=== PATIENT | male | born 1970 | race Caucasian/White ===

== ENCOUNTER 2019-07-18 23:02 | Emergency (ER) | payer OTHER ==
--- NOTE | 2019-07-18 23:32 | ED Physician Documentation ---
PD HPI ABD PAIN - Stated complaint Stated Complaint: LT ABD PX - Chief complaint Chief Complaint: Abd Pain - History obtained from History obtained from: Patient - History of Present Illness Timing - onset: How many hours ago (few), Today Timing - duration: Hours (few) Timing - details: Abrupt onset, Still present (though has decreased a lot since arrival to the ER.) Quality: Cramping, Aching, Pain Location: LLQ Radiation: Left flank Improved by: No: Eating, Laying still, Position Worsened by: No: Eating, Moving, Palpation Associated symptoms: Nausea. No: Fever, Vomiting, Diarrhea, Constipation, Dysuria, Hematuria, Chest pain, Near syncope / syncope, Loss of appetite Similar symptoms before: Has not had sx before Recently seen: Not recently seen Review of Systems Constitutional: denies: Fever, Chills, Myalgias Nose: denies: Rhinorrhea / runny nose, Congestion Throat: denies: Sore throat Cardiac: denies: Chest pain / pressure Respiratory: denies: Cough GI: reports: Abdominal Pain, Nausea. denies: Abdominal Swelling, Vomiting, Constipation, Diarrhea : denies: Dysuria, Frequency, Hematuria Skin: denies: Rash Neurologic: denies: Generalized weakness, Near syncope PD PAST MEDICAL HISTORY - Past Medical History Past Medical History: Yes Cardiovascular: None Respiratory: None Neuro: None Endocrine/Autoimmune: None GI: None : None HEENT: None Psych: None Musculoskeletal: None Derm: None - Past Surgical History Past Surgical History: No - Present Medications Home Medications: Ambulatory Orders Medication Instructions Recorded Confirmed No Known Home Medications 07/18/19 07/18/19 - Allergies Allergies/Adverse Reactions: Allergies Allergy/AdvReac Type Severity Reaction Status Date / Time No Known Drug Allergies Allergy Verified 07/18/19 23:12 - Social History Does the pt smoke?: Yes Smoking Status: Current every day smoker Does the pt drink ETOH?: Yes Does the pt have substance abuse?: No - Immunizations Immunizations are current?: Yes - POLST Patient has POLST: No PD ED PE NORMAL - Vitals Vital signs reviewed: Yes - General General: Alert and oriented X 3, No acute distress, Well developed/nourished Results - Vitals Vitals: Vital Signs - 24 hr 07/18/19 07/19/19 07/19/19 23:08 00:45 01:18 Temperature 36.8 C 36.2 C L Heart Rate 82 77 75 Respiratory 16 15 14 Rate Blood Pressure 169/86 H 141/73 H 124/75 O2 Saturation 92 94 95 Oxygen O2 Source Room air - Labs Labs: Laboratory Tests 07/19/19 07/19/19 07/19/19 00:23 00:23 00:26 WBC 16.1 H RBC 4.74 Hgb 14.9 Hct 43.3 MCV 91.4 MCH 31.4 H MCHC 34.4 RDW 12.8 Plt Count 238 MPV 10.1 Neut # (Auto) 12.3 H Lymph # (Auto) 2.1 [place] # (Auto) 1.1 H Eos # (Auto) 0.4 Baso # (Auto) 0.1 Absolute Nucleated RBC 0.00 Nucleated RBC % 0.0 Sodium 137 Potassium 3.7 Chloride 101 Carbon Dioxide 24 Anion Gap 12.0 BUN 18 Creatinine 1.4 H Estimated GFR (MDRD) 54 L Glucose 114 H Calcium 9.1 Total Bilirubin 0.4 AST 32 ALT 44 Alkaline Phosphatase 60 Total Protein 7.0 Albumin 4.3 Globulin 2.7 Albumin/Globulin Ratio 1.6 Lipase 35 Urine Color YELLOW Urine Clarity CLEAR Urine pH 6.5 Ur Specific [place] 1.015 Urine Protein NEGATIVE Urine Glucose (UA) NEGATIVE Urine Ketones NEGATIVE Urine Occult Blood NEGATIVE Urine Nitrite NEGATIVE Urine Bilirubin NEGATIVE Urine Urobilinogen 0.2 (NORMAL) Ur Leukocyte Esterase NEGATIVE Ur Microscopic Review NOT INDICATED Urine Culture Comments NOT INDICATED - Rads (name of study) KUB CT Radiology: Prelim report reviewed (No acute process on CT. ), See rad report PD MEDICAL DECISION MAKING - ED course Complexity details: reviewed results (The CT did not show any acute abnormality. His pain had improved and he did give a urine sample prior to the scan. This potentially he may have had a stone that passed. It could have been intestinal cramping or spasm or a partial blockage that is now resolved. I think processes such as diverticulitis or local infection should be persisting and visible.), considered differential (Consider kidney stone given the location and onset. Also consider diverticulitis or vascular process. We will get a CT scan as well as urine and blood his pain is significantly improved arriving here into the ER. The process of it seems to be improving.), d/w patient (Given significant improvement in his pain after arrival to the hospital. I talked with him to discuss further assessment such as labs and CT scan. It is possible he may be passing a stone and it just be dormant at the moment. He opted for some imaging and testing to see the probability of further symptoms recurring.) Departure - Departure Disposition: 01 Home, Self Care Clinical Impression: Left sided abdominal pain Condition: Stable Record reviewed to determine appropriate education?: Yes Instructions: ED Abdominal Pain Unkn Cause Comments: Your CT scan does not show any acute abnormality. No signs of stones, diverticulitis, localized swelling or inflammation. Consider the possibility of a stone that already passed. Otherwise there may been some intestinal cramping that is now improved. At this point I would not anticipate a repeat episode. If you do have some pains, use some Tylenol or ibuprofen. Discharge Date/Time: 07/19/19 01:18
[2019-07-18] MEDS ORDERED: IBUPROFEN 600 MG TABLET PO STA (23:56)
[2019-07-18] MEDS ORDERED: ACETAMINOPHEN 325 MG TABLET PO STA (23:56)
[2019-07-19 00:30] LABS: BILIRUBIN,URINE NEGATIVE (NEGATIVE); GLUCOSE, URINE (UA) NEGATIVE (NEGATIVE); KETONES,URINE (UA) NEGATIVE (NEGATIVE); LEUKOCYTE ESTERASE, URINE NEGATIVE (NEGATIVE); NITRITE,URINE NEGATIVE (NEGATIVE); OCCULT BLOOD,URINE NEGATIVE (NEGATIVE); PH,URINE 6.5 PH (5.0-7.5); PROTEIN,URINE NEGATIVE (NEGATIVE); UROBILINOGEN,URINE 0.2 (NORMAL) E.U./dL (NORMAL)
[2019-07-19 00:33] LABS: CLARITY,URINE CLEAR (CLEAR)
[2019-07-19 00:37] LABS: BASOPHILS # (AUTO) 0.1 10^3/uL (0.0-0.1); BASOPHILS % (AUTO) 0.6 %; EOSINOPHILS # (AUTO) 0.4 10^3/uL (0.0-0.7); EOSINOPHILS % (AUTO) 2.4 %; HGB - HEMOGLOBIN 14.9 g/dL (14.0-18.0); LYMPHOCYTES # (AUTO) 2.1 10^3/uL (1.5-3.5); LYMPHOCYTES % (AUTO) 13.2 %; MEAN CORPUSCULAR HEMOGLOBIN 31.4 pg (27.0-31.0); MEAN CORPUSCULAR HGB CONC 34.4 g/dL (32.0-36.0); MEAN CORPUSCULAR VOLUME 91.4 fL (80.0-94.0); MEAN PLATELET VOLUME 10.1 fL (7.4-11.4); MONOCYTES # (AUTO) 1.1 10^3/uL (0.0-1.0); MONOCYTES % (AUTO) 6.8 %; NEUTROPHILS # (AUTO) 12.3 10^3/uL (1.5-6.6); NEUTROPHILS % (AUTO) 76.3 %; PLT - PLATELET COUNT 238 10^3/uL (130-450); RED BLOOD COUNT 4.74 10^6/uL (4.70-6.10); RED CELL DISTRIBUTION WIDTH 12.8 % (12.0-15.0); WHITE BLOOD COUNT 16.1 x10^3/uL (4.8-10.8)
[2019-07-19 00:45] LABS: ALBUMIN 4.3 g/dL (3.2-5.5); ALBUMIN/GLOBULIN RATIO 1.6 (1.0-2.2); BILIRUBIN,TOTAL 0.4 mg/dL (0.2-1.0); CALCIUM 9.1 mg/dL (8.5-10.3); CREATININE 1.4 mg/dL (0.6-1.2)
--- NOTE | 2019-07-19 00:47 | CT Report ---
Reason: left abd pain Procedure Date: 07/19/2019 Accession Number: [id number] / [id number] Procedure: CT - Abdomen/Pelvis WO CPT Code: Final Report FULL RESULT: EXAM: CT ABDOMEN AND PELVIS (CT KUB) EXAM DATE: 07/19/2019 12:38 AM. CLINICAL HISTORY: Left abd pain. COMPARISONS: None. TECHNIQUE: Routine axial helical CT imaging was performed through the abdomen and pelvis without IV contrast. Reconstructions: Coronal and sagittal. In accordance with CT protocol optimization, one or more of the following dose reduction techniques were utilized for this exam: automated exposure control, adjustment of mA and/or KV based on patient size, or use of iterative reconstructive technique. FINDINGS: Lung Bases: Unremarkable. Right Kidney/Ureter: No stones, hydronephrosis, or hydroureter. No perinephric fat stranding. Left Kidney/Ureter: No stones, hydronephrosis, or hydroureter. No perinephric fat stranding. Other Solid Organs: Noncontrast images of the solid organs are grossly unremarkable. Gallbladder/Bile Ducts: Unremarkable. Peritoneal Cavity: No free fluid, free air or constance adenopathy. Bowel is grossly unremarkable. Pelvic Organs: No bladder stones or wall thickening. Noncontrast images of the visualized pelvic organs are unremarkable. There are no inflammatory changes of the colon. No evidence for diverticulosis. Normal appendix. Vasculature: Unremarkable. Other: None. IMPRESSION: 1. Negative CT scan abdomen and pelvis. No evidence for renal or ureteral calculi. RADIA
[2019-07-19 01:20] VITALS: BP 124/75
== END 2019-07-19 01:18 | disposition home or self-care (01) ==
LOC: ED 23:02
DX: R10.9 Unspecified abdominal pain (principal); F17.200 Nicotine dependence, unspecified, uncomplicated
CPT/HCPCS: 36415; 74176; 80053; 81003; 83690; 85025; 99281; 99284; A9270; 81001; 87086

== ENCOUNTER 2021-02-21 17:45 | Emergency (ER) | payer OTHER ==
[2021-02-21 17:54] VITALS: BP 178/87
--- NOTE | 2021-02-21 17:57 | ED Physician Documentation ---
PD HPI UPPER EXT INJURY - Stated complaint Stated Complaint: LT FINGER LAC - Chief complaint Chief Complaint: Laceration - History obtained from History obtained from: Patient - History of Present Illness Location: Left, Finger Type of injury: Fall, Blunt / blow (He was standing in [place] edge of a river [place] get [place] and fell forward. Jammed left fingertips with laceration and pain at IP joints, nailbed.) Where injury occurred: Other (camping in [facility] last night) Timing - onset: Last night Timing - details: Abrupt onset, Still present, Other (he is concerned about stiffness for flexion at DIP joints, wanting to ensure not broken.) Worsened by: Moving, Palpating Associated symptoms: Weakness, Swelling. No: Tingling Similar symptoms before: Has not had sx before Recently seen: Not recently seen Review of Systems Skin: reports: Laceration (s). denies: Rash Neurologic: reports: Focal weakness (feeling difficulty with flexion of index and middle fingers. Has bruising and swelling in those areas.). denies: Numbness PD PAST MEDICAL HISTORY - Past Medical History Cardiovascular: None Respiratory: None Neuro: None Endocrine/Autoimmune: None GI: None : None HEENT: None Psych: None Musculoskeletal: None Derm: None - Past Surgical History Past Surgical History: No - Present Medications Home Medications: Ambulatory Orders Medication Instructions Recorded Confirmed No Known Home Medications 07/18/19 07/18/19 - Allergies Allergies/Adverse Reactions: Allergies Allergy/AdvReac Type Severity Reaction Status Date / Time No Known Drug Allergies Allergy Verified 02/21/21 17:54 - Social History Does the pt smoke?: Yes Smoking Status: Current every day smoker Does the pt drink ETOH?: Yes Does the pt have substance abuse?: No - Immunizations Immunizations are current?: Yes - POLST Patient has POLST: No PD ED PE NORMAL - Vitals Vital signs reviewed: Yes - General General: Alert and oriented X 3, Well developed/nourished - Derm Derm: Normal color, Warm and dry - Extremities Extremities: Other (.He has a small stellate laceration at the tip of the index finger some blood under the fingernail with slight lifting of the distal portion. The nychial fold is intact. Bruising at the palmar DIP areas on both index and middle fingers) - Neuro Neuro: No motor deficit (hurting with flexion at DIP but able to engage flexion against resistance. ), No sensory deficit Results - Vitals Vitals: Vital Signs - 24 hr 02/21/21 17:50 Temperature 36.7 C Heart Rate 88 Respiratory 16 Rate Blood Pressure 178/87 H O2 Saturation 98 Oxygen O2 Source Room air - Rads (name of study) fingers Radiology: Prelim report reviewed (distal tuft small fracture index finger tip. No articular injuries. ), See rad report PD MEDICAL DECISION MAKING - ED course Complexity details: reviewed results, considered differential (I do not feel any stitches are useful at the wound. I will clean it again with as there is some dried blood but and apply Steri-Strips. Otherwise distal finger splint. We will x-ray.), d/w patient Departure - Departure Disposition: 01 Home, Self Care Clinical Impression: Accidental fall, Finger sprain, Open fracture of tuft of distal phalanx of finger, Finger laceration Condition: Stable Instructions: ED Fx Finger Closed, ED Sprain Finger Comments: The laceration does not appear to need sutures in can be held together with tapes. Allow these to fall off on their own over several days, then continue care with cleaning/ointment/bandaids. The nailbed is loosened and will likely fall off in the near future but for now holding it in place is good to protect the nailbed as it heals. There is a small chip fracture at the tip of the finger bone. This will just need time to heal in place and does not need specific treatment. It does seem likely you have some sprain of the joint of both the index and middle fingers causing the swelling bruising and stiffness. Use the finger splint to protect the index finger in particular. Guarded use of the fingers over the next week or so to allow swelling and initial healing around the joints. Recheck if signs of infection. Tylenol or ibuprofen if needed for pains. Recheck if not better over the next week or so. The tip of the index finger will be sensitive to touch and palpation diminishingly over 3 to 4 weeks until it heals. Discharge Date/Time: 02/21/21 18:59
--- NOTE | 2021-02-21 19:45 | XRAY Report ---
PROCEDURE: Finger(s) LT INDICATIONS: fall with index/middle finger pain TECHNIQUE: PA hand, 2 views of the index and middle fingers acquired. COMPARISON: None. FINDINGS: Bones: There is a minimally displaced mildly comminuted fracture of the tuft of the second distal ph alanx. No additional fracture is identified. No suspicious bony lesions. Soft tissues: No suspicious soft tissue calcifications. Soft tissue edema is seen in the second fin christy. IMPRESSION: Minimally displaced and mildly comminuted fracture of the tuft of the second distal phalanx. There is no significant discrepancy when compared with the preliminary teleradiology report. Reviewed by: Luis Manuel Gutierrez MD on 02/21/2021 7:44 PM PDT Approved by: Luis Manuel Gutierrez MD on 02/21/2021 7:44 PM PDT Station ID: [id number]
== END 2021-02-21 18:59 | disposition home or self-care (01) ==
LOC: ED 17:45
DX: S62.631B Displaced fracture of distal phalanx of left index finger, initial encounter for open fracture (principal); S63.611A Unspecified sprain of left index finger, initial encounter; S63.613A Unspecified sprain of left middle finger, initial encounter; W19.XXXA Unspecified fall, initial encounter; Y93.89 Activity, other specified; Y92.828 Other wilderness area as the place of occurrence of the external cause; F17.200 Nicotine dependence, unspecified, uncomplicated
CPT/HCPCS: 99282; 99283